=== PATIENT | female | born 1955 | race Hispanic/Latino ===

== ENCOUNTER 2017-11-07 22:15 | Emergency (ER) | payer OTHER, MEDICAID ==
[2017-11-07] MEDS ORDERED: PREDNISONE 20 MG TABLET ONE (22:49)
[2017-11-07 22:55] LABS: BASOPHILS % (AUTO) 0.5 % (0.0-5.0); HEMATOCRIT 38.4 % (36-48); LYMPHOCYTES % (AUTO) 43.4 % (21.0-51.0); MEAN CORPUSCULAR HEMOGLOBIN 28.1 pg (27.0-33.0); MEAN CORPUSCULAR HGB CONC 33.3 g/dL (32.0-36.0); MEAN CORPUSCULAR VOLUME 84.5 fL (79-99); MONOCYTES % (AUTO) 6.3 % (3.0-13.0); NEUTROPHILS % (AUTO) 47.8 % (40.0-77.0); PLATELET COUNT (AUTO) 214 K/uL (130-400); RED BLOOD CELL COUNT(AUTO) 4.54 MIL/uL (4.00-5.50); RED CELL DISTRIBUTION WIDTH 13.9 % (11.0-15.5); WHITE BLOOD COUNT (AUTO) 6.5 K/uL (4.8-10.8)
[2017-11-07 22:56] LABS: APPEARANCE,URINE Clear (CLEAR); BILIRUBIN,URINE Negative (NEGATIVE); COLOR,URINE Yellow (YELLOW); GLUCOSE, URINE (UA) >=1000 mg/dL (NEGATIVE); KETONES,URINE Negative (NEGATIVE); LEUKOCYTE ESTERASE ,URINE Negative (NEGATIVE); NITRATE,URINE Positive (NEGATIVE); OCCULT BLOOD,URINE Negative (NEGATIVE); PROTEIN,URINE Negative (NEGATIVE); UROBILINOGEN,URINE 0.2 mg/dL (0.2-1.0)
[2017-11-07 23:03] LABS: RBC,URINE 0-1 /HPF (0-1)
[2017-11-07 23:04] LABS: AMORPHOUS SEDIMENT,UR Moderate /LPF (None Seen); BACTERIA,URINE Moderate /HPF (None Seen); MUCUS,URINE Many LPF (None Seen); SQUAMOUS EPITHELIAL CELL,UR Moderate /LPF (0-2)
[2017-11-07 23:09] LABS: CREATININE 0.9 mg/dL (0.5-1.5); POTASSIUM 3.7 mmol/L (3.5-5.1)
[2017-11-08] MEDS ORDERED: INSULIN HUMULIN R 100 UNIT/ML 3ML ONE (01:29)
[2017-11-08] MEDS ORDERED: ACETAMINOPHEN 325 MG TAB ONE (01:31)
== END 2017-11-08 02:30 | disposition home or self-care (01) ==
LOC: EDH 22:15
DX: G51.0 Bell's palsy (principal); E11.65 Type 2 diabetes mellitus with hyperglycemia; I10 Essential (primary) hypertension; Z90.49 Acquired absence of other specified parts of digestive tract
CPT/HCPCS: 36415; 70551; 80048; 81001; 82948; 84484; 85025; 93005; 96374; 99291; J1815

== ENCOUNTER 2017-12-08 08:50 | Observation (INO) | payer MEDICAID ==
[~2017-12-08] VITALS: Ht 153.7 cm; Wt 84.8 kg
[2017-12-08 12:42] VITALS: BP 131/74
[2017-12-08] MEDS ORDERED: METF10004 PO ×2 (12:42)
[2017-12-08] MEDS ORDERED: INSU100I24 SQ ×2 (12:42)
[2017-12-08] MEDS ORDERED: ASPI-1026 PO (12:42)
[2017-12-08] MEDS ORDERED: SITA50TA PO (12:42)
[2017-12-08] MEDS ORDERED: PARO40TA72 PO (12:42)
[2017-12-08] MEDS ORDERED: LISI40TA4 PO (12:42)
[2017-12-08] MEDS ORDERED: CALC-1038 PO (12:42)
[2017-12-08] MEDS ORDERED: INSU100I3 SQ ×2 (12:42)
[2017-12-08] MEDS ORDERED: PRAV80TA21 PO (12:42)
[2017-12-08] MEDS ORDERED: SOLI5 PO (12:42)
[2017-12-08] MEDS ORDERED: OMEP40CA37 PO (12:42)
[2017-12-08] MEDS ORDERED: FLUT16H NASAL (12:42)
[2017-12-09] VITALS (25 sets, daily range): BP systolic 118–158; BP diastolic 64–83
[2017-12-09] MEDS: CEFAZOLIN SODIUM 1 GM VIAL IVP SCH ×3 (06:00→13:41)
[2017-12-09] MEDS ORDERED: SODIUM CHLORIDE 0.9% 1000ML 1,000 ML IV ONE (06:30)
[2017-12-09] MEDS ORDERED: MIDAZOLAM HCL 1 MG/ML 2ML VIAL ONE (07:19)
[2017-12-09] MEDS ORDERED: PROPOFOL 10 MG/ML 20ML VIAL IV ONE (07:19)
[2017-12-09] MEDS ORDERED: FENTANYL CITRATE PF 50 MCG/1 ML 2ML VIAL ONE (07:20)
[2017-12-09] MEDS ORDERED: ROPIVACAINE 0.5% 5MG/ML 30ML IJ ONE (07:23)
[2017-12-09] MEDS ORDERED: EPHEDRINE SULFATE 50 MG/ML AMPULE ONE (08:01)
[2017-12-09] MEDS ORDERED: ONDANSETRON HCL 4 MG/2 ML VIAL ONE (08:25)
[2017-12-09] MEDS ORDERED: DEXAMETHASONE SOD PHOSPHATE 10MG/ML 1ML VIAL ONE (08:25)
[2017-12-09] MEDS ORDERED: LIDOCAINE PF 2% 5ML ABBOJECT ONE (08:25)
[2017-12-09] MEDS ORDERED: ASPIRIN 325MG EC TAB 325 MG TABLET.DR PO SCH ×2 (11:15→21:00)
[2017-12-09] MEDS: INSULIN HUMULIN R 100 UNIT/ML 3ML SQ SCH ×2 (16:33→22:11)
[2017-12-09] MEDS ORDERED: INSULIN DEGLUDEC SQ SCH (21:00)
[2017-12-09] MEDS ORDERED: ATORVASTATIN CALCIUM 20 MG TABLET PO SCH (21:00)
[2017-12-09] MEDS: CALCIUM CARBONATE 500 MG TABLET PO SCH (21:56)
[2017-12-09] MEDS ORDERED: METOPROLOL TARTRATE 25 MG TAB PO SCH (22:00)
[2017-12-09] MEDS: INSULIN LISPRO 100 UNIT/ML 3ML SQ SCH (22:09)
[2017-12-09 22:39] LABS: HEMATOCRIT 35.3 % (36-48); MEAN CORPUSCULAR HEMOGLOBIN 29.5 pg (27.0-33.0); MEAN CORPUSCULAR HGB CONC 34.3 g/dL (32.0-36.0); PLATELET COUNT (AUTO) 247 K/uL (130-400); RED CELL DISTRIBUTION WIDTH 14.1 % (11.0-15.5); WHITE BLOOD COUNT (AUTO) 8.7 K/uL (4.8-10.8)
[2017-12-09 23:14] LABS: CARBON DIOXIDE 25 mmol/L (21-32); CHLORIDE 101 mmol/L (101-111); CREATINE KINASE MB 0.8 ng/mL (0.5-3.6); CREATINE KINASE, TOTAL 82 U/L (21-232); CREATININE 0.9 mg/dL (0.5-1.5); GLOMERULAR FILTR. RATE CALC 68 mL/min (>60); GLUCOSE,RANDOM 251 mg/dL (70-105); MYOGLOBIN 34 ng/mL (10-92); POTASSIUM 4.1 mmol/L (3.5-5.1); SODIUM SERUM 136 mmol/L (136-145); THYROID STIMULATING HORMONE 0.71 uIU/mL (0.36-3.74); TROPONIN I < 0.04 ng/mL (0.00-0.06); UREA NITROGEN, BLOOD 16 mg/dL (7-18)
[2017-12-09] MEDS ORDERED: IOPAMIDOL-370 75 ML VIAL IV ONE (23:32)
[2017-12-10] MEDS ORDERED: KETOROLAC TROMETHAMINE 30MG/ML IV PRN
[2017-12-10] MEDS ORDERED: KETOROLAC TROMETHAMINE 30MG/ML ONE (00:06)
[2017-12-10 03:23] VITALS: BP 114/56
[2017-12-10 07:00] VITALS: BP 100/65
[2017-12-10] MEDS: INSULIN HUMULIN R 100 UNIT/ML 3ML SQ SCH ×2 (07:21→13:13)
[2017-12-10] MEDS ORDERED: METFORMIN HCL 500 MG TABLET PO SCH ×2 (08:00→12:00)
[2017-12-10] MEDS: CALCIUM CARBONATE 500 MG TABLET PO SCH ×2 (08:53→13:24)
[2017-12-10] MEDS ORDERED: PAROXETINE HCL 20 MG TABLET PO SCH (09:00)
[2017-12-10] MEDS ORDERED: PANTOPRAZOLE SODIUM 40 MG TABLET.DR PO SCH (09:00)
[2017-12-10] MEDS ORDERED: SOLIFENACIN SUCCINATE 5 MG PO SCH (09:00)
[2017-12-10] MEDS ORDERED: LINAGLIPTIN 5 MG TABLET PO SCH (09:00)
[2017-12-10] MEDS ORDERED: METOPROLOL TARTRATE 25 MG TAB PO SCH (09:00)
[2017-12-10] MEDS ORDERED: LISINOPRIL 40 MG TABLET PO SCH (09:00)
[2017-12-10] MEDS ORDERED: ASPIRIN 81MG TAB.CHEW PO SCH (09:00)
[2017-12-10] MEDS ORDERED: FLUTICASONE PROPIONATE 50MCG/SPRAY 16 GM BOTTLE NS SCH (09:00)
[2017-12-10] MEDS ORDERED: INSULIN DEGLUDEC SQ SCH (09:00)
[2017-12-10] MEDS: INSULIN LISPRO 100 UNIT/ML 3ML SQ SCH (09:03)
[2017-12-10] MEDS ORDERED: TRAM50TA4 PO (09:56)
[2017-12-10 11:00] VITALS: BP 122/72
[2017-12-10] MEDS ORDERED: INSULIN LISPRO 100 UNIT/ML 3ML SQ SCH (12:00)
== END 2017-12-10 18:01 | disposition home or self-care (01) ==
LOC: EDSTATUS 10:30 → DAHIP 12-09 06:11 → 2DH 12-09 15:13
DX: S83.232A Complex tear of medial meniscus, current injury, left knee, initial encounter (principal); S83.412A Sprain of medial collateral ligament of left knee, initial encounter; I25.10 Atherosclerotic heart disease of native coronary artery without angina pectoris; M19.90 Unspecified osteoarthritis, unspecified site; I10 Essential (primary) hypertension; E78.00 Pure hypercholesterolemia, unspecified; K21.9 Gastro-esophageal reflux disease without esophagitis; J42 Unspecified chronic bronchitis; E11.65 Type 2 diabetes mellitus with hyperglycemia; Z79.82 Long term (current) use of aspirin; Z82.49 Family history of ischemic heart disease and other diseases of the circulatory system; Z90.710 Acquired absence of both cervix and uterus; E78.5 Hyperlipidemia, unspecified; X58.XXXA Exposure to other specified factors, initial encounter; Y93.89 Activity, other specified; Y92.89 Other specified places as the place of occurrence of the external cause; Y99.8 Other external cause status
CPT/HCPCS: 29881; 36415; 71275; 80048; 82550; 82553; 82948 ×6; 83874; 84443; 84484; 85027; 85378; 88304; 96372 ×2; 96374; 96375; A4218 ×2; A4450; A4649; A4930 ×2; A6223; G0378 ×37; J0690 ×2; J1100; J1885 ×2; J2001; J2250; J2405; J2704; J2795; J3010; J3490; J7030 ×2; Q9967

== ENCOUNTER 2018-12-28 08:00 | Observation (INO) | payer MEDICAID ==
[~2018-12-28] VITALS: Ht 154.9 cm; Wt 88.5 kg
[~2018-12-28 08:00] MED LIST: CALC-1038 PO; FLUT16H NASAL; INSU100I24 SQ; LISI40TA4 PO; OMEP40CA37 PO; PARO40TA72 PO; PRAV80TA21 PO; SOLI5 PO; TRAM50TA4 PO
[2018-12-28 10:48] VITALS: BP 123/68
[2018-12-28] MEDS ORDERED: ASPI-1181 PO (11:11)
[2018-12-28] MEDS ORDERED: INSU100I24 SQ (11:11)
[2018-12-28] MEDS ORDERED: INSU12CA IH (11:11)
[2018-12-28] MEDS ORDERED: INSU8CAR IH (11:11)
[2018-12-28] MEDS ORDERED: PIOG1TAB18 PO (11:11)
[2018-12-28] MEDS ORDERED: FISH1CAP63 PO (11:12)
[2018-12-28] MEDS: CEFAZOLIN SODIUM 1 GM VIAL IVP SCH (13:00)
[2018-12-29] VITALS (20 sets, daily range): BP systolic 98–135; BP diastolic 57–78
[2018-12-29] MEDS ORDERED: SODIUM CHLORIDE 0.9% 1000ML 1,000 ML IV ONE (06:22)
[2018-12-29] MEDS ORDERED: LIDOCAINE PF 2% 5ML ABBOJECT ONE (07:25)
[2018-12-29] MEDS ORDERED: DEXAMETHASONE SOD PHOSPHATE 10MG/ML 1ML VIAL ONE (07:25)
[2018-12-29] MEDS ORDERED: MIDAZOLAM HCL 1 MG/ML 2ML VIAL ONE (07:25)
[2018-12-29] MEDS ORDERED: PROPOFOL 10 MG/ML 20ML VIAL IV ONE (07:25)
[2018-12-29] MEDS ORDERED: ONDANSETRON HCL 4 MG/2 ML VIAL ONE (07:25)
[2018-12-29] MEDS ORDERED: FENTANYL CITRATE PF 50 MCG/1 ML 2ML VIAL ONE (07:26)
[2018-12-29] MEDS ORDERED: ROCURONIUM 10MG/1ML SYR 10 MG/ML ML ONE (07:27)
[2018-12-29] MEDS: CEFAZOLIN SODIUM 1 GM VIAL IVP SCH ×3 (07:30→21:59)
[2018-12-29] MEDS ORDERED: ROPIVACAINE 0.5% 5MG/ML 30ML IJ ONE (07:30)
[2018-12-29] MEDS ORDERED: NEOSTIGMINE 5MG/5ML SYR IV ONE (08:53)
[2018-12-29] MEDS ORDERED: GLYCOPYRROLATE 1 MG/5 ML SYRINGE ONE (08:53)
[2018-12-29] MEDS ORDERED: LACTATED RINGERS 1000ML 1,000 ML IV ONE (10:24)
[2018-12-29] MEDS ORDERED: LACTATED RINGERS 1000ML 1,000 ML IV SCH (10:30)
[2018-12-29] MEDS ORDERED: MORPHINE SULFATE 10 MG/ML 1ML SYG IM PRN (10:30)
[2018-12-29] MEDS ORDERED: PROMETHAZINE HCL 25 MG/ML 1ML AMPULE IM PRN (10:30)
[2018-12-29] MEDS ORDERED: BISACODYL 10 MG SUPP.RECT RC PRN (10:30)
[2018-12-29] MEDS ORDERED: MAGNESIUM HYDROXIDE 30 ML/UDCUP PO PRN (10:30)
[2018-12-29] MEDS ORDERED: MORPHINE SULFATE 2 MG/ML 1ML SYG IVP PRN (11:45)
[2018-12-29] MEDS ORDERED: ONDANSETRON HCL MDV 20ML 2 MG/ML VIAL IVP PRN (11:45)
[2018-12-29] MEDS ORDERED: ACETAMINOPHEN 325 MG TAB PO PRN (11:45)
[2018-12-29] MEDS ORDERED: DEXTROSE 50%-WATER 50 ML DISP.SYRIN IV PRN (12:00)
[2018-12-29] MEDS ORDERED: GLUCAGON 1MG KIT 1 MG ML IM PRN (12:00)
[2018-12-29] MEDS ORDERED: TRAMADOL HCL 50 MG TABLET PO SCH (12:00)
[2018-12-29] MEDS ORDERED: TRAMADOL HCL 50 MG TABLET PO PRN (12:15)
[2018-12-29 12:36] LABS: HEMATOCRIT 35.8 % (36-48)
[2018-12-29] MEDS: CALCIUM CARBONATE 500 MG TABLET PO SCH ×2 (14:12→22:00)
[2018-12-29] MEDS: INSULIN HUMULIN R 100 UNIT/ML 3ML SQ SCH ×2 (16:30→22:11)
[2018-12-29] MEDS: METFORMIN HCL PO SCH (17:00)
[2018-12-29] MEDS: PIOGLITAZONE HCL PO SCH (17:00)
[2018-12-29 18:08] LABS: HEMATOCRIT 36.5 % (36-48)
[2018-12-29] MEDS ORDERED: ATORVASTATIN CALCIUM 20 MG TABLET PO SCH (21:00)
[2018-12-30 00:17] VITALS: BP 120/61
[2018-12-30 00:54] LABS: HEMATOCRIT 33.8 % (36-48)
[2018-12-30 04:00] VITALS: BP 108/68
[2018-12-30] MEDS: CEFAZOLIN SODIUM 1 GM VIAL IVP SCH (05:09)
[2018-12-30] MEDS: INSULIN HUMULIN R 100 UNIT/ML 3ML SQ SCH ×2 (05:53→12:45)
[2018-12-30 06:24] LABS: HEMATOCRIT 35.4 % (36-48)
[2018-12-30 07:30] VITALS: BP 135/66
[2018-12-30] MEDS: METFORMIN HCL PO SCH (08:00)
[2018-12-30] MEDS: PIOGLITAZONE HCL PO SCH (08:00)
[2018-12-30] MEDS ORDERED: ASPIRIN 81MG TAB.CHEW PO SCH (09:00)
[2018-12-30] MEDS ORDERED: NON-FORMULARY MEDICATION 1 EACH (Omeprazole 40 MG) PO SCH (09:00)
[2018-12-30] MEDS ORDERED: PANTOPRAZOLE SODIUM 40 MG TABLET.DR PO SCH (09:00)
[2018-12-30] MEDS ORDERED: FISH OIL 1000 MG/CAP PO SCH (09:00)
[2018-12-30] MEDS ORDERED: PAROXETINE HCL 20 MG TABLET PO SCH (09:00)
[2018-12-30] MEDS ORDERED: FLUTICASONE PROPIONATE 50MCG/SPRAY 16 GM BOTTLE EN SCH (09:00)
[2018-12-30] MEDS ORDERED: ENOXAPARIN SODIUM 40 MG/0.4 ML SYRINGE SQ SCH (09:00)
[2018-12-30] MEDS ORDERED: LISINOPRIL 40 MG TABLET PO SCH (09:00)
[2018-12-30] MEDS: CALCIUM CARBONATE 500 MG TABLET PO SCH (09:34)
[2018-12-30] MEDS ORDERED: TYL3 PO (09:59)
[2018-12-30 11:00] VITALS: BP 151/72
--- NOTE | 2018-12-30 16:30 | NUR ---
PT D/C EDUCATION GIVEN USING TEACH BACK METHOD SATISFACTORILY IV , REMOVED CATHETER INTACT PT EDUCATED ON DR. SCHROEDER'S FU APPOINTMENT AND D/C ORDERS MENTION ABOVE PT DENIES SOB OR CHEST PAIN DRESSING CHANGED, NO SIGNS OF INFECTION NOTED
== END 2018-12-30 17:01 | disposition home or self-care (01) ==
LOC: DAHIP 12-29 06:11 → EDSTATUS 12-29 08:00 → 4BH 12-29 10:32
PROVIDERS: ADMIT Internal Medicine; ATTEND Internal Medicine
DX: M75.101 Unspecified rotator cuff tear or rupture of right shoulder, not specified as traumatic (principal); M25.711 Osteophyte, right shoulder; M75.41 Impingement syndrome of right shoulder; E11.9 Type 2 diabetes mellitus without complications; E78.00 Pure hypercholesterolemia, unspecified; E78.5 Hyperlipidemia, unspecified; I10 Essential (primary) hypertension; K21.9 Gastro-esophageal reflux disease without esophagitis; M19.011 Primary osteoarthritis, right shoulder; F32.9 Major depressive disorder, single episode, unspecified; Z90.710 Acquired absence of both cervix and uterus; Z79.899 Other long term (current) drug therapy
CPT/HCPCS: 23120; 23130; 23412; 24110; 36415 ×2; 82948 ×7; 85014 ×4; 85018 ×4; 88304; 88311; 94760; 96372 ×2; 96374; 96375; 96376 ×2; 97116; 97161; A4218 ×3; A4606; A4930 ×2; A6223; C1713 ×2; G0378 ×36; G8978; G8979; G8980; G8981; G8982; G8983; J0690 ×4; J1100; J1815 ×2; J2001; J2250; J2405; J2704; J2710; J2795; J3010; J3490; J7030 ×2; J7120

== ENCOUNTER 2019-03-25 15:33 | Emergency (ER) | payer MEDICAID ==
[~2019-03-25 15:33] MED LIST changes: +ASPI-1181 PO; +FISH1CAP63 PO; +INSU12CA IH; +INSU8CAR IH; +PIOG1TAB18 PO; +TYL3 PO
[2019-03-25] MEDS ORDERED: IBUPROFEN 400 MG TABLET ONE (15:59)
[2019-03-25] MEDS ORDERED: TRAMADOL HCL 50 MG TABLET ONE (15:59)
[2019-03-25] MEDS ORDERED: LIDOCAINE 5% TOPICAL PATCH TP ONE ×2 (15:59→16:33)
== END 2019-03-25 16:50 | disposition home or self-care (01) ==
LOC: EDH 15:33
DX: B02.9 Zoster without complications (principal); I10 Essential (primary) hypertension; E11.9 Type 2 diabetes mellitus without complications; Z90.49 Acquired absence of other specified parts of digestive tract

== ENCOUNTER 2019-08-23 11:00 | Observation (INO) | payer MEDICAID ==
[~2019-08-23] VITALS: Ht 154.9 cm; Wt 88.0 kg
--- NOTE | 2019-08-23 09:00 | NUR ---
INITIAL MET W PT AND DAUGHTER/ GRANDDAUGHTER AT [facility]- PT LIVES WITH DAUGHTER BELEM KNIGHT HAS BEEN CARE DEPENDENDT FOR ABOUT 7 YEARS- TRANSFER FROM BED TO W/CHAIR, USES A WALKER TO STAND, NEEDS ASSISTANC EWITH MOST TASKS, CURRENTLY IS MORE IDSORIENTED THAN USUAL, 2/2 TO PAIN MEDICAITON NOT SURE WHAT THE DISPOSTION WITH BE- FAMILY WANTS PT TO GO TO SNF FOR REHAB- NOT SURE WHAT REHAB WILL BE APPROPIRATE- PT WITH [facility] IMMOBIL[facility]ER AND NO SURGEON HAS GIVEN AN OK FOR PT. CM TO FOLLLOW Addendum: 08/25/19 at 1533 by MEAGAN LIVINGSTON RN CM Amended: Links added. Addendum: 08/25/19 at 1836 by MEAGAN LIVINGSTON RN CM WRONG CHART
--- NOTE | 2019-08-23 09:01 | NUR ---
NOTE AT 0901 IN ERROR
[~2019-08-23 11:00] MED LIST changes: -CALC-1038 PO; -FISH1CAP63 PO; -FLUT16H NASAL; -INSU12CA IH; +OMEP40CA13 PO; -OMEP40CA37 PO; -PIOG1TAB18 PO; +PIOG1TAB30 PO; -TRAM50TA4 PO; -TYL3 PO
[2019-08-23 12:19] VITALS: BP 125/69
[2019-08-23] MEDS ORDERED: IBUP-2070 PO (12:41)
[2019-08-23] MEDS ORDERED: OMEG1CAP43 PO (12:41)
[2019-08-24] VITALS (23 sets, daily range): BP systolic 107–144; BP diastolic 49–96
--- NOTE | 2019-08-24 07:52 | NUR ---
potential for infection: no shaving needed to right knee / leg as assessed per garth recinos cna, wiped with cony: 2% chlorhexidine gluconate cloth patients pre-op skin prep per garth recinos cna.
[2019-08-24] MEDS ORDERED: SODIUM CHLORIDE 0.9% 1000ML 1,000 ML IV ONE (08:16)
[2019-08-24] MEDS: CEFAZOLIN SODIUM 1 GM VIAL IVP ONE ×2 (08:29→10:09)
[2019-08-24] MEDS ORDERED: CALC-1009 PO (08:49)
[2019-08-24] MEDS ORDERED: ROPIVACAINE 0.5% 5MG/ML 30ML IJ ONE (09:42)
[2019-08-24] MEDS ORDERED: PROPOFOL 10 MG/ML 20ML VIAL IV ONE (09:44)
[2019-08-24] MEDS ORDERED: ROCURONIUM 10MG/1ML SYR 10 MG/ML ML ONE (09:44)
[2019-08-24] MEDS ORDERED: FENTANYL CITRATE PF 50 MCG/1 ML 5ML AMP IV ONE (09:44)
[2019-08-24] MEDS ORDERED: LIDOCAINE PF 2% 5ML ABBOJECT ONE (09:44)
[2019-08-24] MEDS ORDERED: MIDAZOLAM HCL 1 MG/ML 2ML VIAL ONE (09:44)
[2019-08-24] MEDS ORDERED: EPHEDRINE SULFATE 50 MG/ML AMPULE ONE (10:27)
[2019-08-24] MEDS ORDERED: KETOROLAC TROMETHAMINE 30MG/ML ONE (10:30)
[2019-08-24] MEDS ORDERED: GLYCOPYRROLATE 1 MG/5 ML SYRINGE ONE (10:30)
[2019-08-24] MEDS ORDERED: ONDANSETRON HCL 4 MG/2 ML VIAL ONE (10:30)
[2019-08-24] MEDS ORDERED: DEXAMETHASONE SOD PHOSPHATE 10MG/ML 1ML VIAL ONE (10:30)
[2019-08-24] MEDS ORDERED: NEOSTIGMINE 5MG/5ML SYR IV ONE (10:30)
--- NOTE | 2019-08-24 11:00 | NUR ---
VAL HAS SPOKE TO FAMILY YESTERDAY AND ANSWERED QUESTIONS- NO REFERRAL PKT. DISPPO UNCERTAIN, PT STILL ON A ONE TO ONE , NOT A CANDIDATE FOR PLACEMENT Addendum: 08/25/19 at 1536 by MEAGAN LIVINGSTON RN CM Amended: Links added. Addendum: 08/25/19 at 1836 by MEAGAN LIVINGSTON RN CM ENTERED IN ERROR
--- NOTE | 2019-08-24 11:01 | NUR ---
NOTE AT 1100 ENTERED IN ERROR
[2019-08-24 11:45] LABS: HEMATOCRIT 36.3 % (36-48)
[2019-08-24] MEDS ORDERED: MORPHINE SULFATE 2 MG/ML 1ML SYG IVP PRN (14:15)
[2019-08-24] MEDS ORDERED: ONDANSETRON HCL 4 MG/2 ML VIAL IVP PRN (14:15)
[2019-08-24] MEDS ORDERED: IBUPROFEN 600 MG TABLET PO PRN (14:15)
[2019-08-24] MEDS ORDERED: ACETAMINOPHEN 325 MG TAB PO PRN (14:15)
[2019-08-24] MEDS ORDERED: LACTATED RINGERS 1000ML 1,000 ML IV SCH (15:45)
[2019-08-24] MEDS ORDERED: MAGNESIUM HYDROXIDE 30 ML/UDCUP PO PRN (15:45)
[2019-08-24] MEDS ORDERED: BISACODYL 10 MG SUPP.RECT RC PRN (15:45)
[2019-08-24] MEDS ORDERED: MORPHINE SULFATE 10 MG/ML 1ML SYG IM PRN (15:45)
[2019-08-24] MEDS ORDERED: PROMETHAZINE HCL 25 MG/ML 1ML AMPULE IM PRN (15:45)
[2019-08-24] MEDS ORDERED: HYDRALAZINE HCL 20 MG/ML VIAL IV PRN (15:45)
--- NOTE | 2019-08-24 16:00 | NUR ---
INITIAL AND REFERRAL FOR [facility] AND [facility]- TITLE XIX IN CHART MET W PATIENT LIVES ALONE IN SAFE/ACCESSIBLE APT, SISTER WILL STAY FOR RECOVERY PERIOD. PT HAS NOT DME AND WAS PREVIOSULY INDPENDENT SIS TER WILL BE DRIVING TO DR. SCHROEDER FOR SURGERY.TITLE XIX PREPARED AND LEFT IN CHART FOR MD TO SIGN CM TO FOLLOW DCP HOME
[2019-08-24] MEDS: INSULIN HUMULIN R 100 UNIT/ML 3ML SQ SCH ×2 (16:13→21:26)
[2019-08-24] MEDS: CEFAZOLIN SODIUM 1 GM VIAL IVP SCH ×2 (16:14→23:45)
[2019-08-24] MEDS: CALCIUM 600 + VITAMIN D 400 TABLET PO SCH (16:14)
[2019-08-24] MEDS ORDERED: PIOGLITAZONE HCL 15 MG TAB PO SCH (17:00)
[2019-08-24] MEDS ORDERED: METFORMIN HCL 850 MG TABLET PO SCH (17:00)
[2019-08-24 18:30] LABS: HEMATOCRIT 34.1 % (36-48)
[2019-08-24] MEDS ORDERED: SIMVASTATIN 20 MG TABLET PO SCH (21:00)
[2019-08-24] MEDS: FAMOTIDINE 20MG TAB 20 MG TAB PO SCH (21:18)
[2019-08-24] MEDS: FISH OIL 1000 MG/CAP PO SCH (21:18)
[2019-08-25 00:31] LABS: HEMATOCRIT 31.7 % (36-48)
[2019-08-25 03:56] VITALS: BP 99/46
[2019-08-25 04:07] VITALS: BP 122/70
[2019-08-25 06:11] LABS: BASOPHILS % (AUTO) 0.2 % (0.0-5.0); HEMATOCRIT 32.5 % (36-48); LYMPHOCYTES % (AUTO) 15.9 % (21.0-51.0); MEAN CORPUSCULAR HEMOGLOBIN 30.1 pg (27.0-33.0); MEAN CORPUSCULAR HGB CONC 33.7 g/dL (32.0-36.0); MEAN CORPUSCULAR VOLUME 89.3 fL (79-99); NEUTROPHILS % (AUTO) 76.9 % (40.0-77.0); PLATELET COUNT (AUTO) 217 K/uL (130-400); RED BLOOD CELL COUNT(AUTO) 3.64 MIL/uL (4.00-5.50); WHITE BLOOD COUNT (AUTO) 8.6 K/uL (4.8-10.8)
[2019-08-25 06:34] LABS: CREATININE 0.9 mg/dL (0.5-1.5)
[2019-08-25] MEDS: INSULIN HUMULIN R 100 UNIT/ML 3ML SQ SCH ×2 (07:28→12:23)
[2019-08-25] MEDS ORDERED: PANTOPRAZOLE SODIUM 40 MG TABLET.DR PO SCH (07:30)
[2019-08-25 08:00] VITALS: BP 137/73
[2019-08-25] MEDS: CEFAZOLIN SODIUM 1 GM VIAL IVP SCH (08:55)
[2019-08-25] MEDS: FAMOTIDINE 20MG TAB 20 MG TAB PO SCH (08:55)
[2019-08-25] MEDS: FISH OIL 1000 MG/CAP PO SCH ×2 (08:56→15:48)
[2019-08-25] MEDS: CALCIUM 600 + VITAMIN D 400 TABLET PO SCH ×2 (08:56→12:17)
[2019-08-25] MEDS: ACETAMINOPHEN-CODEINE 300/30MG TAB PO PRN ×2 (08:57→15:48)
[2019-08-25] MEDS ORDERED: LISINOPRIL 40 MG TABLET PO SCH (09:00)
[2019-08-25] MEDS ORDERED: PAROXETINE HCL 20 MG TABLET PO SCH (09:00)
[2019-08-25] MEDS ORDERED: SOLIFENACIN SUCCINATE 5 MG PO SCH (09:00)
[2019-08-25] MEDS ORDERED: ASPIRIN 81 MG EC TAB PO SCH (09:00)
[2019-08-25] MEDS ORDERED: ENOXAPARIN SODIUM 30 MG/0.3 ML SQ SCH (09:00)
[2019-08-25 12:00] VITALS: BP 123/64
[2019-08-25] MEDS ORDERED: ACET1TAB12 PO (14:12)
[2019-08-25] MEDS ORDERED: APIX2.5T PO (14:12)
--- NOTE | 2019-08-25 15:36 | NUR ---
DISPOSITION UNCERTAIN NO SURGEON YET TO SEE PT. PT INTERMEDIATE RISK FOR SURGERY Addendum: 08/25/19 at 1838 by MEAGAN LIVINGSTON RN CM WRONG CHART
--- NOTE | 2019-08-25 15:37 | NUR ---
NOTE ON WRONG CHART AT 1539
--- NOTE | 2019-08-25 16:30 | NUR ---
pt stated understanding of all d/c instructions on after care for a knee arthrotomy; iv access removed; pt had dme equipment at bedside. sister here to take home.
--- NOTE | 2019-08-25 18:37 | NUR ---
CM NOTES ON WRONG CHART - PLEASE CHECK THE AMENDMENT
== END 2019-08-25 17:31 | disposition home or self-care (01) ==
LOC: EDSTATUS 11:00 → DAHIP 08-24 07:21 → 4BH 08-24 11:56
DX: S83.241A Other tear of medial meniscus, current injury, right knee, initial encounter (principal); S83.421A Sprain of lateral collateral ligament of right knee, initial encounter; M71.21 Synovial cyst of popliteal space [Baker], right knee; M17.11 Unilateral primary osteoarthritis, right knee; I10 Essential (primary) hypertension; E11.9 Type 2 diabetes mellitus without complications; F32.9 Major depressive disorder, single episode, unspecified; K21.9 Gastro-esophageal reflux disease without esophagitis; E78.5 Hyperlipidemia, unspecified; Z90.710 Acquired absence of both cervix and uterus; Z96.651 Presence of right artificial knee joint; Z79.4 Long term (current) use of insulin; Z79.01 Long term (current) use of anticoagulants; Z79.899 Other long term (current) drug therapy
CPT/HCPCS: 27332; 36415 ×2; 80048; 82948 ×6; 85014 ×3; 85018 ×3; 85025; 88304; 94760; 96372 ×2; 96374; 96376 ×2; 97039 ×2; 97116 ×2; 97161; A4215; A4221; A4222; A4223; A4450; A4510; A4600; A4606; A4649; A4663; A4930 ×2; A5120; A6223; A6260; A6447; C1713; G0378 ×30; G8978; G8979; G8980; G8981; G8982; G8983; J0690 ×4; J1100; J1650; J1815 ×2; J1885; J2001; J2250; J2405; J2704; J2710; J2795; J3010; J3490 ×2; J7030

== ENCOUNTER 2019-08-27 21:33 | Emergency (ER) | payer MEDICAID ==
[~2019-08-27 21:33] MED LIST changes: +ACET1TAB12 PO; +APIX2.5T PO; +CALC-1009 PO; +IBUP-2070 PO; +OMEG1CAP43 PO
[2019-08-27] MEDS ORDERED: ONDANSETRON 4 MG TABLET ONE (22:29)
[2019-08-27] MEDS ORDERED: MORPHINE SULFATE 4 MG/1ML SYG ONE (22:29)
== END 2019-08-27 23:35 | disposition home or self-care (01) ==
LOC: EDH 21:33
DX: G89.18 Other acute postprocedural pain (principal); M25.561 Pain in right knee; E11.9 Type 2 diabetes mellitus without complications; I10 Essential (primary) hypertension; Z98.890 Other specified postprocedural states
CPT/HCPCS: 96372; 99283; J2270; Q0162

== ENCOUNTER 2025-05-07 08:34 | Day surgery (SDC) | payer OTHER, MEDICAID ==
[2025-05-02 10:52] LABS: IMMATURE GRANULOCYTE ABSOLUTE 0.01 K/uL (0-1); NUCLEATED RED BLOOD CELLS 0.0 % (0.0-0.19); PLATELET COUNT (AUTO) 256 K/uL (130-400); RED BLOOD CELL COUNT(AUTO) 3.83 MIL/uL (4.00-5.50); RED CELL DISTRIBUTION WIDTH 13.2 % (11.0-15.5); WHITE BLOOD COUNT (AUTO) 3.9 K/uL (4.8-10.8)
[2025-05-02 10:53] LABS: APPEARANCE,URINE CLEAR (CLEAR); GLUCOSE, URINE (UA) NEGATIVE (NEGATIVE); LEUKOCYTE ESTERASE ,URINE NEGATIVE Leu/uL (NEGATIVE); NITRATE,URINE NEGATIVE (NEGATIVE); OCCULT BLOOD,URINE NEGATIVE (NEGATIVE)
[2025-05-02 10:54] LABS: ADD UA MICROSCOPIC NO
[2025-05-02 11:00] VITALS: BP 129/64; PULSE 80; RESP 17; TEMP 97.9
[2025-05-02 11:03] LABS: INR 0.97 (0.85-1.15)
[2025-05-02 11:16] LABS: ASPARTATE AMINOTRANSFERASE 18.0 U/L (10-37); CREATININE 0.6 mg/dL (0.5-1.0); GLOMERULAR FILTR. RATE CALC 98.0 mL/min (>90); GLUCOSE,RANDOM 103.0 mg/dL (70-105); SODIUM SERUM 140.0 mmol/L (136-145); TOTAL PROTEIN, SERUM 7.2 g/dL (6.0-8.3); UREA NITROGEN, BLOOD 20.0 mg/dL (7-18)
--- NOTE | 2025-05-02 12:55 | EKG ---
[facility] Test Date: 2025-05-02 Test Time: 10:37:20 Pat Name: EITAN ROBERTO Department: [facility] Room: Gender: F Qualitative Researcher: [id number] : 1955 Requested By: BECCA PHELPS Order Number: [id number] Reading MD: Regino De La Cruz Measurements Intervals [place] Rate: 69 P: 37 LA: 137 QRS: 7 QRSD: 89 T: 43 QT: 394 QTc: 422 Interpretive Statements Sinus rhythm Low voltage, extremity leads Compared to ECG 11/07/2017 22:37:27 Low QRS voltage now present Sinus tachycardia no longer present Myocardial infarct finding no longer present Electronically Signed On 05-02-2025 15:36:36 CDT by Regino De La Cruz Please click the below link to view image of tracing.
[~2025-05-07] VITALS: Ht 154.9 cm; Wt 66.0 kg
[2025-05-07] VITALS (17 sets, daily range): BP systolic 105–148; BP diastolic 50–63; PULSE 76–84; RESP 8–17; TEMP 97.1–97.6
[~2025-05-07 08:34] MED LIST changes: -ACET1TAB12 PO; -APIX2.5T PO; -ASPI-1181 PO; -CALC-1009 PO; +DICL50TA7 PO; +DICY20TA3 PO; +EZET10TA48 PO; +GABA300C PO; -IBUP-2070 PO; -INSU100I24 SQ; +INSU3INS3 SQ; +LISI40TA15 PO; -LISI40TA4 PO; +METF-446 PO; -OMEG1CAP43 PO; -OMEP40CA13 PO; +PANT40TA54 PO; -PIOG1TAB30 PO; +PIOG30TA70 PO; -PRAV80TA21 PO; +PRAV80TA75 PO; +PROB1TAB2 PO; +SEMA2PEN SQ
[2025-05-07] MEDS: 0.9%NACL 1000ML 1,000 ML IV ONE (09:23)
[2025-05-07] MEDS ORDERED: GABAPENTIN 300 MG CAPSULE ONE (14:48)
[2025-05-07] MEDS ORDERED: FAMOTIDINE 20MG VIAL IV ONE (14:49)
[2025-05-07] MEDS ORDERED: LIDOCAINE PF 100MG/5ML (2%) SYRINGE 5ML ONE ×2 (14:55→14:57)
[2025-05-07] MEDS ORDERED: NEOSTIGMINE METHYLSULFATE 1MG/ML IV ONE (15:13)
[2025-05-07] MEDS ORDERED: GLYCOPYRROLATE 0.2 MG/ML 5 ML VIAL ONE (16:19)
--- NOTE | 2025-05-07 16:22 | OP ---
Operative Note: DATE OF PROCEDURE: 05/07/25 SURGEON: BECCA PHELPS MD COLLISION TECHNICIAN: [] PREOPERATIVE DIAGNOSIS: Bilateral inguinal hernias POSTOPERATIVE DIAGNOSIS: Right indirect and femoral inguinal hernia, left indirect inguinal hernia anesthesia: GENERAL endotracheal Anesthesiologist: Gadiel CHRISTENSEN PROCEDURE: Robotic bilateral inguinal hernia repairs with mesh INDICATIONS: Symptomatic bilateral hernias Specimens removed: None Devices left in place: Renton 3D max right [id number] and left 13X8CM inguinal mesh see implant report for details DESCRIPTION OF PROCEDURE: Patient is brought to the operating room placed on the operating table in a supine position. Once general endotracheal anesthesia is achieved patient is placed in supine position and patient's abdomen and perineum are prepped and draped in sterile fashion. We then proceeded to create a transverse incision at the left upper quadrant at Macias's point. And under direct visualization with Optiview went through the abdominal wall and entered the abdominal cavity. Obtain a pneumoperitoneum. THERE WERE SOME ADHESIONS OF THE RIGHT UPPER QUADRANT THAT WE TOOK DOWN WITH THE LAPAROSCOPIC BOVIE CAUTERY. Under direct visualization we proceeded to introduce two 8 mm trochars one in the right upper quadrant and one at the epigastric region just to the left of the midline and placed another 8 mm where we had a 5 mm trocar of insertion and switched it out. Placed patient in Trendelenburg and brought the robot and docked it. We then evaluated the groins there was bilateral inguinal hernias. We then proceeded to create peritoneal flap starting laterally at the anterior iliac spine and going medially until the midline at the suprapubic region. And then brought the peritoneal flap down to expose the inguinal canal took down the hernia sac. And Started peritoneal flap going inferiorly so that are mesh woul d not roll up. We did this on both sides. The right inguinal region had a INDIRECT AND FEMORAL hernia. In the left inguinal region had indirect inguinal hernia. We did divide round ligament. We then placed the right inguinal 16*10cm mesh and then a left inguinal 13x8cm mesh. Each 1 was secured medially at the lacunar ligament using Renton suture. And laterally to the abdominal wall to avoid migration of the mesh. We then proceeded to close the peritoneal flap using running 2 OV lock suture. All needles were taken out. No bleeding was seen. All instruments were removed. Robot was undocked. Patient is flat. Skin incisions was closed with 4-0 Monocryl running subcuticular fashion and Dermabond was applied over top. Patient tolerated the procedure well all counts were correct x2 at the end of the procedure. BECCA PHELPS MD May 07, 2025 16:22
[2025-05-07] MEDS ORDERED: SUGAMMADEX SODIUM 200 MG/2 ML VIAL IV ONE (16:41)
--- NOTE | 2025-05-07 17:40 | NUR ---
DRESSING: INCISION X 3 TO ABDOMEN WITH DERMABOND DRY/INTACT. NO REDNESS/SWELLING NOTED TO SURROUNDING AREA
--- NOTE | 2025-05-07 17:57 | NUR ---
ACTIVITY/ELIMINATION: ASSISTED TO STANDING POSITION WITHOUT COMPLAINING OF DIZZINESS. AMBULATED TO BATHROOM SLOW STEADY GAIT WITH ASSISTANCE. PT VOIDED QS YELLOW COLOR URINE IN TOILET. ASSISTED BACK TO STRETCHER.
--- NOTE | 2025-05-07 18:05 | NUR ---
DRESSING: ABDOMINAL INCISION X 3 WITH DERMABOND DRY/INTACT. NO REDNESS/SWELLING NOTED TO SURROUNDING AREA.
== END 2025-05-07 18:05 | disposition home or self-care (01) ==
LOC: DAH 08:34
PROVIDERS: ATTEND Student in an Organized Health Care Education/Training Program
DX: K40.20 Bilateral inguinal hernia, without obstruction or gangrene, not specified as recurrent (principal); K42.9 Umbilical hernia without obstruction or gangrene; I10 Essential (primary) hypertension; E11.9 Type 2 diabetes mellitus without complications; Z90.49 Acquired absence of other specified parts of digestive tract; Z79.4 Long term (current) use of insulin; Z79.01 Long term (current) use of anticoagulants; Z79.899 Other long term (current) drug therapy
CPT/HCPCS: 93005; 80053; 85025; 85610; 85730; 81003; 36415; 49650; 82948 ×2; A6260; C1781 ×2; A4663; J7120; A4344; J3490 ×6; J3010; J1100; J7030; J0665; J2003 ×2; J2704; J2405; J2710; J0690; C1769; A4649; A4930; C1713; A4215; A4213; A4222; A4221; A4216; A4223 ×2; A4600